=== PATIENT | female | born 1995 | race Caucasian/White ===

== ENCOUNTER 2020-10-20 11:17 | Emergency (ER) | payer OTHER ==
[~2020-10-20] VITALS: Ht 160 cm; Wt 65.9 kg
[2020-10-20] MEDS ORDERED: ADVAIR DISKUS1 DS1 IH (11:32)
[2020-10-20] MEDS ORDERED: ZYRTEC ALLERGY10 MG PO (11:33)
[2020-10-20] MEDS ORDERED: FEXOFENADINE HY60 MG PO (11:33)
[2020-10-20] MEDS ORDERED: PROAIR HFA0.09 MG/AC IH (11:33)
[2020-10-20] MEDS ORDERED: XYZAL5 MG PO (11:33)
[2020-10-20 12:13] LABS: BASO # 0.1 (0.02-0.10); EOS % 7.8 % (1.0-5.0); HEMATOCRIT 41.5 % (37.0-47.0); HEMOGLOBIN 13.3 g/dL (12.5-16.0); LYMPH# 2.4 (1.50-4.00); MEAN CELL VOLUME 93 fl (78-100); MEAN CORPUSCULAR HEMOGLOBIN 30 pg (27-31); MEAN CORPUSCULAR HGB CONC 32 g/dL (33-37); MEAN PLATELET VOLUME 11.2 fl (7.4-10.4); MONO # 0.6 (0.20-0.80); PLATELET COUNT 252 K/mm3 (130-400); RED BLOOD COUNT 4.47 M/mm3 (4.10-5.30); RED CELL DISTRIBUTION WIDTH 12.8 % (11.5-14.5); WHITE BLOOD COUNT 9.8 K/mm3 (4.8-10.8)
[2020-10-20 12:16] LABS: EOS # 0.8 (0.04-0.40)
[2020-10-20 12:22] LABS: ALBUMIN 4.5 g/dL (3.5-5.0); POTASSIUM 4.2 mmol/L (3.5-5.1); SODIUM 139 mmol/L (136-145)
[2020-10-20 12:23] LABS: CALCIUM 9.8 mg/dL (8.3-10.5)
[2020-10-20 12:24] LABS: GLUCOSE 87 mg/dL (65-105)
[2020-10-20 12:25] LABS: TOTAL PROTEIN 7.6 g/dL (6.4-8.3)
[2020-10-20 12:26] LABS: CARBON DIOXIDE 25 mmol/L (22-29); TOTAL BILIRUBIN 0.4 mg/dL (0.2-1.2)
[2020-10-20 12:30] LABS: AST-SGOT 20 U/L (5-34)
[2020-10-20 12:31] LABS: ALT/SGPT 20 U/L (0-55)
[2020-10-20 12:35] LABS: D-DIMER 0.48 mg/L FEU (0.15-0.50)
[2020-10-20 15:00] LABS: TROPONIN-I < 0.03 ng/mL (<0.030)
[2020-10-20 15:45] VITALS: BP 110/75
== END 2020-10-20 15:45 | disposition home or self-care (01) ==
LOC: ED 11:17
PROVIDERS: Physician Assistant
DX: R07.89 Other chest pain (principal); F41.0 Panic disorder [episodic paroxysmal anxiety]; J45.909 Unspecified asthma, uncomplicated; Z88.2 Allergy status to sulfonamides; Z88.6 Allergy status to analgesic agent; Z88.1 Allergy status to other antibiotic agents

== ENCOUNTER 2022-08-26 23:54 | Emergency (ER) | payer OTHER ==
[~2022-08-26] VITALS: Ht 160 cm; Wt 71.5 kg
[~2022-08-26 23:54] MED LIST: ADVAIR DISKUS1 DS1 IH; FEXOFENADINE HY60 MG PO; PROAIR HFA0.09 MG/AC IH; XYZAL5 MG PO; ZYRTEC ALLERGY10 MG PO
[2022-08-27 00:26] LABS: BASO # 0.07 K/mm3 (0.02-0.10); EOS # 0.66 K/mm3 (0.04-0.40); EOS % 6.8 % (1.0-5.0); HEMATOCRIT 40.6 % (37.0-47.0); HEMOGLOBIN 13.3 g/dL (12.5-16.0); LYMPH# 4.01 K/mm3 (1.50-4.00); MEAN CELL VOLUME 93 fl (78-100); MEAN CORPUSCULAR HEMOGLOBIN 30 pg (27-31); MEAN CORPUSCULAR HGB CONC 33 g/dL (33-37); MEAN PLATELET VOLUME 10.7 fl (7.4-10.4); NEU # 4.38 K/mm3 (1.40-6.50); PLATELET COUNT 219 K/mm3 (130-400); RED BLOOD COUNT 4.39 M/mm3 (4.10-5.30); WHITE BLOOD COUNT 9.7 K/mm3 (4.8-10.8)
[2022-08-27 00:30] VITALS: BP 136/89
[2022-08-27 00:41] LABS: ALBUMIN 4.4 g/dL (3.5-5.0)
[2022-08-27 00:42] LABS: POTASSIUM 3.8 mmol/L (3.5-5.1); SODIUM 140 mmol/L (136-145)
[2022-08-27 00:43] LABS: CALCIUM 9.6 mg/dL (8.3-10.5)
[2022-08-27 00:44] LABS: GLUCOSE 92 mg/dL (65-105); TOTAL PROTEIN 7.3 g/dL (6.4-8.3)
[2022-08-27 00:45] LABS: CARBON DIOXIDE 27 mmol/L (22-29)
[2022-08-27 00:46] LABS: TOTAL BILIRUBIN 0.3 mg/dL (0.2-1.2)
[2022-08-27 00:49] LABS: AST-SGOT 64 U/L (5-34)
[2022-08-27 00:50] LABS: ALT/SGPT 39 U/L (0-55)
[2022-08-27 00:51] LABS: LIPASE 35 U/L (8-78)
[2022-08-27 00:59] LABS: TROPONIN-I < 0.030 ng/mL (<0.030)
== END 2022-08-27 00:35 | disposition left against medical advice (07) ==
LOC: ED 23:54
PROVIDERS: Nurse Practitioner
DX: R10.13 Epigastric pain (principal); Z32.02 Encounter for pregnancy test, result negative; Z28.310 Unvaccinated for COVID-19; Z20.822 Contact with and (suspected) exposure to COVID-19